=== PATIENT | female | born 1985 | race Caucasian/White ===

== ENCOUNTER 2020-09-26 12:53 | Emergency (ER) | payer OTHER, SELFPAY ==
[2020-09-26 13:07] VITALS: BP 131/90; PULSE 129; RESP 18; TEMP 36.3; O2SAT 97; BMI 20.5
[2020-09-26] MEDS: ONDANSETRON 4 MG/2 ML INJ IV (13:26)
[2020-09-26] MEDS: SODIUM CHLORIDE 0.9% 1,000 ML 1000 ML IV (13:26)
[2020-09-26 13:36] LABS: Add Manual Diff / Slide Review NO; Basophils Absolute Auto 0 /uL (0-100); Eosinophils Absolute Auto 0 /uL (0-450); Eosinophils Percent Auto 0.9 % (2-4); Hemoglobin 14.3 g/dL (12.0-16.0); Lymphocytes Absolute Auto 800 /uL (1100-4500); Lymphocytes Percent Auto 24.6 % (25-40); Mean Corpuscular HGB Conc 34.9 % (30-36); Mean Corpuscular Volume 103.3 fL (80-100); Monocytes Absolute Auto 400 /uL (0-900); Monocytes Percent Auto 10.4 % (3-14); Neutrophils Absolute Auto 2200 /uL (1500-7000); Neutrophils Percent Auto 63.1 % (50-75); Platelet Count 72 X10^3/uL (150-400); Red Blood Cell Count 3.97 X10^6/uL (4.0-5.2); White Blood Cell Count 3.5 X10^3/uL (4.5-11.0)
--- NOTE | 2020-09-26 13:46 | ED_ITS ---
HPI - Alcohol <GONZALO Tariq-BC - Last Filed: 09/26/20 17:44> General Chief Complaint: Toxicology Problem Stated Complaint: withdrawls from alcohol Time Seen by Provider: 09/26/20 12:58 Source: patient Mode of arrival: Ambulatory Limitations: no limitations History of Present Illness HPI narrative: The patient is a 34-year-old female current smoker with history of alcoholism who presents with a chief complaint of wanting help detoxing from alcohol. She drinks approximately 1/5 of whiskey per day. She has been trying to decrease her alcohol intake over the past few days, then noted that she was starting to have some symptoms of withdrawal. 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 She states she has had about 7 shots of whiskey over the past 24 hours. She has been inpatient in the hospital for detox, has not been through an outpatient program. She states she has been on medication prior to help detox, does not know which she has taken. She denies any other substances, does note that she smokes marijuana from time to time. She notes that her largest prior to of sobriety was approximately 8 months. She has been drinking consistently since 2013. She has not had her coronavirus vaccinations. Related Data Allergies Allergy/AdvReac Type Severity Reaction Status Date / Time No Known Drug Allergies Allergy Verified 09/26/20 13:10 Review of Systems <GONZALO Tariq- - Last Filed: 09/26/20 17:44> Review of Systems Narrative: GENERAL: Denies chills, fatigue, malaise, fever, sweats. HEENT: Denies sinus pain, ear pain, sore throat, difficulty swallowing, dizziness. RESPIRATORY: Denies dyspnea, cough, wheezing, hemoptysis, sputum. CARDIOVASCULAR: Denies chest pain, palpitations, orthopnea, edema, GASTROINTESTINAL: Denies nausea, vomiting, abdominal pain, diarrhea, constipation, melena. : Denies dysuria, frequency, incontinence, hematuria, urinary retention. MUSCULOSKELETAL: denies weakness, joint pain, or bony pain SKIN: Denies rash, skin lesions, or other NEUROLOGIC: Denies weakness, headache, numbness, change in speech, confusion, seizures, incoordination. PSYCHIATRIC: See HPI 12 point review of systems is negative except for those stated above Patient History <Carmen Rose NA - Last Filed: 09/26/20 17:44> Social History Smoking Status: Current every day smoker Smoking Status: Current every day smoker alcohol intake frequency: 3 or more drinks per day Substance Use Type: marijuana Exam <Carmen Rose NA - Last Filed: 09/26/20 17:44> Narrative Exam Narrative: GENERAL: This is a well-nourished, well-developed patient, in no acute distress HEAD: Atraumatic. Normocephalic. No temporal or scalp tenderness. EYES: Pupils equal round and reactive. Extraocular motions intact. No scleral icterus. No injection or drainage. ENT: Nose without bleeding, purulent drainage or septal hematoma. Wearing a mask Airway patent. NECK: Trachea midline. No JVD or lymphadenopathy. Supple, nontender, no meningeal signs. CARDIOVASCULAR: Regular rate and rhythm without murmurs, gallops, or rubs. RESPIRATORY: Clear to auscultation. Breath sounds equal bilaterally. No wheezes, rales, or rhonchi. No cough. No increased respiratory effort. No accessory muscle use. GASTROINTESTINAL: Abdomen soft, non-tender, nondistended. No hepato- splenomegaly, or palpable masses. No guarding. BACK: Nontender without deformity or crepitance. No flank tenderness. NEURO: AOx3. No tremor noted SKIN: No rash or erythema. Initial Vital Signs Initial Vital Signs: Vital Signs Temperature 97.3 F L 09/26/20 13:07 Pulse Rate 129 H 09/26/20 13:07 Respiratory Rate 18 09/26/20 13:07 Blood Pressure 131/90 09/26/20 13:07 Pulse Oximetry 97 09/26/20 13:07 <Carlos Bolanos DO - Last Filed: 09/26/20 18:08> Initial Vital Signs Initial Vital Signs: Vital Signs Temperature 97.3 F L 09/26/20 13:07 Pulse Rate 129 H 09/26/20 13:07 Respiratory Rate 18 09/26/20 13:07 Blood Pressure 131/90 09/26/20 13:07 Pulse Oximetry 97 09/26/20 13:07 Course <Carmen RoseNA - Last Filed: 09/26/20 17:44> Orders Ordered: ED Orders 09/26/20 13:10 Consult to [employer] - Bulk Sealer Operator Stat 09/26/20 13:24 Acetaminophen Stat Complete Blood Count AUTO DIFF Stat Comprehensive Metabolic Panel Stat Ethanol (ETOH) Stat Free T4, Direct Thyroxine Stat Salicylate Stat Thyroid Stimulating Hormone Stat Troponin & CK Cardiac Panel Stat 09/26/20 13:43 Urine Culture Stat Urine Drug Screen, Rapid Stat Urine Microscopic Stat 09/26/20 14:47 US abdomen limited Stat Discontinued Medications Sodium Chloride (Normal Saline 0.9%) 1,000 mls @ 1,000 mls/hr IV BOLUS ONE Stop: 09/26/20 14:14 Last Infusion: 09/26/20 14:44 Dose: 0 mls/hr Documented by: Admin: 09/26/20 13:26 Dose: 1,000 mls/hr Documented by: BASILIA Ondansetron HCl (Ondansetron 4 Mg/2 Ml Inj) 4 mg IV NOW ONE Stop: 09/26/20 13:16 Last Admin: 09/26/20 13:26 Dose: 4 mg Documented by: BASILIA Phenobarbital (Phenobarbital 65 Mg/Ml Vial) 130 mg IV NOW ONE Stop: 09/26/20 14:19 Last Admin: 09/26/20 14:34 Dose: 130 mg Documented by: ILEANA Vital Signs Vital signs: Vital Signs - 8 hr 09/26/20 13:07 09/26/20 14:35 09/26/20 15:40 Temperature 97.3 F L Pulse Rate 129 H 90 81 Respiratory Rate 18 16 18 Blood Pressure 131/90 128/89 110/70 Pulse Oximetry 97 100 97 09/26/20 16:00 09/26/20 16:13 09/26/20 16:30 Temperature Pulse Rate 84 86 87 Respiratory Rate 14 16 Blood Pressure 105/70 112/82 Pulse Oximetry 98 97 98 <Carlos Bolanos DO - Last Filed: 09/26/20 18:08> Orders Ordered: ED Orders 09/26/20 13:10 Consult to [facility] Bulk Sealer Operator Stat 09/26/20 13:24 Acetaminophen Stat Complete Blood Count AUTO DIFF Stat Comprehensive Metabolic Panel Stat Ethanol (ETOH) Stat Free T4, Direct Thyroxine Stat Salicylate Stat Thyroid Stimulating Hormone Stat Troponin & CK Cardiac Panel Stat 09/26/20 13:43 Urine Culture Stat Urine Drug Screen, Rapid Stat Urine Microscopic Stat 09/26/20 14:47 US abdomen limited Stat Discontinued Medications Sodium Chloride (Normal Saline 0.9%) 1,000 mls @ 1,000 mls/hr IV BOLUS ONE Stop: 09/26/20 14:14 Last Infusion: 09/26/20 14:44 Dose: 0 mls/hr Documented by: Admin: 09/26/20 13:26 Dose: 1,000 mls/hr Documented by: BASILIA Ondansetron HCl (Ondansetron 4 Mg/2 Ml Inj) 4 mg IV NOW ONE Stop: 09/26/20 13:16 Last Admin: 09/26/20 13:26 Dose: 4 mg Documented by: BASILIA Phenobarbital (Phenobarbital 65 Mg/Ml Vial) 130 mg IV NOW ONE Stop: 09/26/20 14:19 Last Admin: 09/26/20 14:34 Dose: 130 mg Documented by: ILEANA Vital Signs Vital signs: Vital Signs - 8 hr 09/26/20 13:07 09/26/20 14:35 09/26/20 15:40 Temperature 97.3 F L Pulse Rate 129 H 90 81 Respiratory Rate 18 16 18 Blood Pressure 131/90 128/89 110/70 Pulse Oximetry 97 100 97 09/26/20 16:00 09/26/20 16:13 09/26/20 16:30 Temperature Pulse Rate 84 86 87 Respiratory Rate 14 16 Blood Pressure 105/70 112/82 Pulse Oximetry 98 97 98 MDM - Alcohol <KRANTHI TariqP-BC - Last Filed: 09/26/20 17:44> Lab Data Attestation: I reviewed the patient's lab results. Result diagrams: 09/26/20 13:24 09/26/20 13:24 Labs: Lab Results 09/26/20 09/26/20 09/26/20 Range/Units 13:24 13:24 13:24 WBC 3.5 L (4.5-11.0) X10^3/uL RBC 3.97 L (4.0-5.2) X10^6/uL Hgb 14.3 (12.0-16.0) g/dL Hct 41.0 (36-46) % MCV 103.3 H (80-100) fL MCH 36.0 H (26-34) PG MCHC 34.9 (30-36) % RDW 13.0 (11.6-14.8) % Plt Count 72 L (150-400) X10^3/uL Neut % (Auto) 63.1 (50-75) % Lymph % (Auto) 24.6 L (25-40) % [place] % (Auto) 10.4 (3-14) % Eos % (Auto) 0.9 L (2-4) % Baso % (Auto) 1.0 (0-2) % Neut # (Auto) 2200 (4058-0663) /uL Lymph # (Auto) 800 L (8516-6629) /uL [place] # (Auto) 400 (0-900) /uL Eos # (Auto) 0 (0-450) /uL Baso # (Auto) 0 (0-100) /uL Sodium 139 (137-145) mmol/L Potassium 3.4 (3.4-5.1) mmol/L Chloride 96 L (98-107) mmol/L Carbon Dioxide 27 (22-32) mmol/L BUN 11 (7-17) mg/dL Creatinine 0.57 (0.52-1.04) mg/dL Estimated GFR > 60.0 (>60) mL/min BUN/Creatinine Ratio 19.3 (6-22) Glucose 97 (70-100) mg/dL Calcium 10.5 H (8.4-10.2) mg/dL Total Bilirubin 4.8 H (0.2-1.3) mg/dL AST 600 H (14-36) IU/L ALT 347 H (<35) IU/L Alkaline Phosphatase 66 (38-126) U/L Total Creatine Kinase (30-135) U/L CK-MB (CK-2) CK-MB (CK-2) Rel Index Troponin I (0.01-0.034) ng/mL Total Protein 9.1 H (6.3-8.2) g/dL Albumin 5.2 H (3.5-5.0) g/dL Globulin 3.9 (1.7-4.1) g/dL Albumin/Globulin Ratio 1.3 (1.0-2.8) TSH 1.20 (0.47-4.68) uIU/mL Free T4 0.98 (0.78-2.19) ng/dL Urine RBC (0-5/HPF) Urine WBC (0-5/HPF) Ur Squamous Epith Cells (0-5/HPF) Amorphous Sediment Urine Bacteria (None) Urine Mucus (Negative) Ur Culture Indicated? Salicylates < 1.0 (<20) mg/dL U Opiates 300ng/mL cut (Negative) Ur Oxycodone Screen (Negative) Urine Methadone Screen (Negative) Acetaminophen < 10 L (10-30) ug/mL Ur Barbiturates Screen (Negative) U Tricyclic Antidepress (Negative) Ur Phencyclidine Scrn (Negative) Ur Amphetamines Screen (Negative) U Methamphetamines Scrn (Negative) Ur MDMA Scrn (Ecstasy) (Negative) U Benzodiazepines Scrn (Negative) Urine Cocaine Screen (Negative) U Marijuana (THC) Screen (Negative) Ethyl Alcohol 84 H ( - 10) mg/dL 09/26/20 09/26/20 09/26/20 Range/Units 13:24 13:43 13:43 WBC (4.5-11.0) X10^3/uL RBC (4.0-5.2) X10^6/uL Hgb (12.0-16.0) g/dL Hct (36-46) % MCV (80-100) fL MCH (26-34) PG MCHC (30-36) % RDW (11.6-14.8) % Plt Count (150-400) X10^3/uL Neut % (Auto) (50-75) % Lymph % (Auto) (25-40) % [place] % (Auto) (3-14) % Eos % (Auto) (2-4) % Baso % (Auto) (0-2) % Neut # (Auto) (7657-2975) /uL Lymph # (Auto) (9215-3165) /uL [place] # (Auto) (0-900) /uL Eos # (Auto) (0-450) /uL Baso # (Auto) (0-100) /uL Sodium (137-145) mmol/L Potassium (3.4-5.1) mmol/L Chloride (98-107) mmol/L Carbon Dioxide (22-32) mmol/L BUN (7-17) mg/dL Creatinine (0.52-1.04) mg/dL Estimated GFR (>60) mL/min BUN/Creatinine Ratio (6-22) Glucose (70-100) mg/dL Calcium (8.4-10.2) mg/dL Total Bilirubin (0.2-1.3) mg/dL AST (14-36) IU/L ALT (<35) IU/L Alkaline Phosphatase (38-126) U/L Total Creatine Kinase 92 (30-135) U/L CK-MB (CK-2) TNP CK-MB (CK-2) Rel Index TNP Troponin I < 0.012 (0.01-0.034) ng/mL Total Protein (6.3-8.2) g/dL Albumin (3.5-5.0) g/dL Globulin (1.7-4.1) g/dL Albumin/Globulin Ratio (1.0-2.8) TSH (0.47-4.68) uIU/mL Free T4 (0.78-2.19) ng/dL Urine RBC 0-1/hpf (0-5/HPF) Urine WBC 1-5/hpf (0-5/HPF) Ur Squamous Epith Cells 5-10 /hpf H (0-5/HPF) Amorphous Sediment 1+ Urine Bacteria Few (2-10) H (None) Urine Mucus 1+ H (Negative) Ur Culture Indicated? Specimen cultured Salicylates (<20) mg/dL U Opiates 300ng/mL cut Negative (Negative) Ur Oxycodone Screen Negative (Negative) Urine Methadone Screen Negative (Negative) Acetaminophen (10-30) ug/mL Ur Barbiturates Screen Negative (Negative) U Tricyclic Antidepress Negative (Negative) Ur Phencyclidine Scrn Negative (Negative) Ur Amphetamines Screen Negative (Negative) U Methamphetamines Scrn Negative (Negative) Ur MDMA Scrn (Ecstasy) Negative (Negative) U Benzodiazepines Scrn Negative (Negative) Urine Cocaine Screen Negative (Negative) U Marijuana (THC) Screen Positive H (Negative) Ethyl Alcohol ( - 10) mg/dL Point of Care Testing Test Results Negative Urine Dip Bedside Urine Glucose Negative Bedside Urine Bilirubin - Negative Bedside Urine Ketone +/- 5 Urine Specific [place] 1.010 Bedside Urine Occult Blood +/- Bedside Urine pH 6.0 Bedside Urine Protein +/- 15 Bedside Urine Urobilinogen 1+ 2mg Bedside Urine Nitrite - Negative Bedside Urine Leukocytes + 70 Esterase Imaging Data US - abdomen: Radiologist's Impressoin: [address] [facility] [place], [place] [address]Evprromgvs ReportSigned Patient: Marshall Franz#: [id number]: 1985Acct:[id number]/Sex: 34 / FDate of Service: 09/26/20Loc: EDAccession Number: [id number] Procedure: US abdomen limited Ordering Provider: Carmen Rose PROCEDURE: US ABDOMEN LIMITED INDICATIONS: ELEVATED LIVER ENZYMES AND BILIRUBIN. ALCOHOL USE. TECHNIQUE: Real-time scanning was performed of the abdominal and retroperitoneal organs, with image documentation. COMPARISON: None. FINDINGS: Liver: Hepatic parenchyma shows diffuse increased echogenicity consistent with fatty infiltration. Liver is enlarged at 19.6 cm. No focal mass lesion. Gallbladder: Sonolucent without shadowing calculi or wall thickening. Biliary ducts: Intrahepatic bile ducts are non-dilated. Extrahepatic bile duct caliber measures 6.7 mm. Normal is 6-7 mm or less in diameter, or 10 mm or less post-cholecystectomy. IMPRESSION: Hepatic fatty infiltration. Otherwise unremarkable right upper quadrant ultrasound Approved by: Carlos Sanches M.D. on 09/26/2020 at 14:34 MDM Narrative Medical decision making narrative: The patient is a 34-year-old female who presents requesting help detox from alcohol. Her CIWA score is 7. 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 She felt much improved after that as well as IV f luids. Resources were discussed with her by Mattie WELDON, but the patient adamantly declines inpatient treatment at this point time. She is noted to have elevated LFTs and bilirubin, especially compared to her previous labs that [place]. Discussed this with Dr. Bolanos, ultrasound was taken and reveals hepatic fatty infiltration. The patient again declines inpatient detox and states that she wants to be discharged. I discussed at length with the patient that she needs to stop drinking, especially given changes in her labs. I discussed at length that phenobarbital infusion showed give her oral days of symptom relief, discussed at length that she needs to come back to the emergency department for any acute concerns, follow-up with primary care provider. Patient has no questions or concerns upon discharge states understanding return precautions as well as follow-up care. She has been hemodynamically stable throughout her stay in the ER. <Carlos Bolanos, DO - Last Filed: 09/26/20 18:08> Lab Data Labs: Lab Results 09/26/20 09/26/20 09/26/20 Range/Units 13:24 13:24 13:24 WBC 3.5 L (4.5-11.0) X10^3/uL RBC 3.97 L (4.0-5.2) X10^6/uL Hgb 14.3 (12.0-16.0) g/dL Hct 41.0 (36-46) % MCV 103.3 H (80-100) fL MCH 36.0 H (26-34) PG MCHC 34.9 (30-36) % RDW 13.0 (11.6-14.8) % Plt Count 72 L (150-400) X10^3/uL Neut % (Auto) 63.1 (50-75) % Lymph % (Auto) 24.6 L (25-40) % [place] % (Auto) 10.4 (3-14) % Eos % (Auto) 0.9 L (2-4) % Baso % (Auto) 1.0 (0-2) % Neut # (Auto) 2200 (5852-4324) /uL Lymph # (Auto) 800 L (1614-3951) /uL [place] # (Auto) 400 (0-900) /uL Eos # (Auto) 0 (0-450) /uL Baso # (Auto) 0 (0-100) /uL Sodium 139 (137-145) mmol/L Potassium 3.4 (3.4-5.1) mmol/L Chloride 96 L (98-107) mmol/L Carbon Dioxide 27 (22-32) mmol/L BUN 11 (7-17) mg/dL Creatinine 0.57 (0.52-1.04) mg/dL Estimated GFR > 60.0 (>60) mL/min BUN/Creatinine Ratio 19.3 (6-22) Glucose 97 (70-100) mg/dL Calcium 10.5 H (8.4-10.2) mg/dL Total Bilirubin 4.8 H (0.2-1.3) mg/dL AST 600 H (14-36) IU/L ALT 347 H (<35) IU/L Alkaline Phosphatase 66 (38-126) U/L Total Creatine Kinase (30-135) U/L CK-MB (CK-2) CK-MB (CK-2) Rel Index Troponin I (0.01-0.034) ng/mL Total Protein 9.1 H (6.3-8.2) g/dL Albumin 5.2 H (3.5-5.0) g/dL Globulin 3.9 (1.7-4.1) g/dL Albumin/Globulin Ratio 1.3 (1.0-2.8) TSH 1.20 (0.47-4.68) uIU/mL Free T4 0.98 (0.78-2.19) ng/dL Urine RBC (0-5/HPF) Urine WBC (0-5/HPF) Ur Squamous Epith Cells (0-5/HPF) Amorphous Sediment Urine Bacteria (None) Urine Mucus (Negative) Ur Culture Indicated? Salicylates < 1.0 (<20) mg/dL U Opiates 300ng/mL cut (Negative) Ur Oxycodone Screen (Negative) Urine Methadone Screen (Negative) Acetaminophen < 10 L (10-30) ug/mL Ur Barbiturates Screen (Negative) U Tricyclic Antidepress (Negative) Ur Phencyclidine Scrn (Negative) Ur Amphetamines Screen (Negative) U Methamphetamines Scrn (Negative) Ur MDMA Scrn (Ecstasy) (Negative) U Benzodiazepines Scrn (Negative) Urine Cocaine Screen (Negative) U Marijuana (THC) Screen (Negative) Ethyl Alcohol 84 H ( - 10) mg/dL 09/26/20 09/26/20 09/26/20 Range/Units 13:24 13:43 13:43 WBC (4.5-11.0) X10^3/uL RBC (4.0-5.2) X10^6/uL Hgb (12.0-16.0) g/dL Hct (36-46) % MCV (80-100) fL MCH (26-34) PG MCHC (30-36) % RDW (11.6-14.8) % Plt Count (150-400) X10^3/uL Neut % (Auto) (50-75) % Lymph % (Auto) (25-40) % [place] % (Auto) (3-14) % Eos % (Auto) (2-4) % Baso % (Auto) (0-2) % Neut # (Auto) (7142-3333) /uL Lymph # (Auto) (9261-3385) /uL [place] # (Auto) (0-900) /uL Eos # (Auto) (0-450) /uL Baso # (Auto) (0-100) /uL Sodium (137-145) mmol/L Potassium (3.4-5.1) mmol/L Chloride (98-107) mmol/L Carbon Dioxide (22-32) mmol/L BUN (7-17) mg/dL Creatinine (0.52-1.04) mg/dL Estimated GFR (>60) mL/min BUN/Creatinine Ratio (6-22) Glucose (70-100) mg/dL Calcium (8.4-10.2) mg/dL Total Bilirubin (0.2-1.3) mg/dL AST (14-36) IU/L ALT (<35) IU/L Alkaline Phosphatase (38-126) U/L Total Creatine Kinase 92 (30-135) U/L CK-MB (CK-2) TNP CK-MB (CK-2) Rel Index TNP Troponin I < 0.012 (0.01-0.034) ng/mL Total Protein (6.3-8.2) g/dL Albumin (3.5-5.0) g/dL Globulin (1.7-4.1) g/dL Albumin/Globulin Ratio (1.0-2.8) TSH (0.47-4.68) uIU/mL Free T4 (0.78-2.19) ng/dL Urine RBC 0-1/hpf (0-5/HPF) Urine WBC 1-5/hpf (0-5/HPF) Ur Squamous Epith Cells 5-10 /hpf H (0-5/HPF) Amorphous Sediment 1+ Urine Bacteria Few (2-10) H (None) Urine Mucus 1+ H (Negative) Ur Culture Indicated? Specimen cultured Salicylates (<20) mg/dL U Opiates 300ng/mL cut Negative (Negative) Ur Oxycodone Screen Negative (Negative) Urine Methadone Screen Negative (Negative) Acetaminophen (10-30) ug/mL Ur Barbiturates Screen Negative (Negative) U Tricyclic Antidepress Negative (Negative) Ur Phencyclidine Scrn Negative (Negative) Ur Amphetamines Screen Negative (Negative) U Methamphetamines Scrn Negative (Negative) Ur MDMA Scrn (Ecstasy) Negative (Negative) U Benzodiazepines Scrn Negative (Negative) Urine Cocaine Screen Negative (Negative) U Marijuana (THC) Screen Positive H (Negative) Ethyl Alcohol ( - 10) mg/dL Point of Care Testing Test Results Negative Urine Dip Bedside Urine Glucose Negative Bedside Urine Bilirubin - Negative Bedside Urine Ketone +/- 5 Urine Specific [place] 1.010 Bedside Urine Occult Blood +/- Bedside Urine pH 6.0 Bedside Urine Protein +/- 15 Bedside Urine Urobilinogen 1+ 2mg Bedside Urine Nitrite - Negative Bedside Urine Leukocytes + 70 Esterase Discharge Plan Departure Patient Disposition: Home Clinical Impression: Alcohol withdrawal syndrome Qualifiers: Complication of substance-induced condition: uncomplicated Qualified Code(s): F10.230 - Alcohol dependence with withdrawal, uncomplicated Instructions: Alcohol and Stress: There are Safer Ways to [place], DI for Alcohol Use Disorder, Drug and Alcohol Withdrawal, Liver Function Tests Activity Restrictions/Additional Instructions: Thank you for trusting us with your care today. As discussed, please follow-up with primary care provider in the next few days. The phenobarbital that we gave you should help prevent symptoms of detox for several days. Please come back to the emergency department for any acute concerns. As discussed, I am concerned about your lab work and would like you to follow-up with primary care provider regarding. We are noticing changes with your lab work related to your or use. This is very concerning and I encourage you to continue on your journey to sobriety. Referrals: Deepa Skinner FNP- [Primary Care Provider] - <Carlos Bolanos DO - Last Filed: 09/26/20 18:08> [facility] Attending [facility]ature Attestation: Dr Bolanos Co-Sign Statement: I was avail able for consultation during this patient's emergency department visit. This chart is signed by myself for administrative purposes only. I did not have direct contact with this patient during this visit. They were seen independently by the APC.
[2020-09-26 13:58] LABS: Acetaminophen < 10 ug/mL (10-30); Alanine Aminotransferase 347 IU/L (<35); Albumin 5.2 g/dL (3.5-5.0); Albumin Globulin Ratio 1.3 (1.0-2.8); Alkaline Phosphatase 66 U/L (38-126); Aspartate Aminotransferase 600 IU/L (14-36); BUN Creatinine Ratio 19.3 (6-22); Bilirubin Total 4.8 mg/dL (0.2-1.3); Blood Urea Nitrogen 11 mg/dL (7-17); Calcium 10.5 mg/dL (8.4-10.2); Carbon Dioxide 27 mmol/L (22-32); Chloride 96 mmol/L (98-107); Estimated Glomerular Filt Rate > 60.0 mL/min (>60); Ethanol (ETOH) 84 mg/dL; Globulin 3.9 g/dL (1.7-4.1); Glucose 97 mg/dL (70-100); HEMOLYSIS 16 (0-50); Potassium 3.4 mmol/L (3.4-5.1); Salicylate < 1.0 mg/dL (<20); Sodium 139 mmol/L (137-145); Total Protein 9.1 g/dL (6.3-8.2)
[2020-09-26 14:00] LABS: Creatine Kinase 92 U/L (30-135)
[2020-09-26 14:11] LABS: Troponin I < 0.012 ng/mL (0.01-0.034)
[2020-09-26 14:14] LABS: Free T4, Direct Thyroxine 0.98 ng/dL (0.78-2.19)
--- NOTE | 2020-09-26 14:14 | PC.NURSE ---
Social work at bedside
[2020-09-26 14:17] LABS: UR Morphine/Opiate cutoff 300 Negative (Negative); Ur Creatinine Normal (Normal); Ur Specific Gravity Normal (Normal); Urine Amphetamines Negative (Negative); Urine Barbiturates Negative (Negative); Urine Benzodiazepines Negative (Negative); Urine Cocaine Negative (Negative); Urine MDMA Negative (Negative); Urine Methadone Negative (Negative); Urine Methamphetamines Negative (Negative); Urine Oxycodone Negative (Negative); Urine Phencyclidine Negative (Negative); Urine Tetrahydrocannabinol Positive (Negative); Urine Tricyclic Antidepressant Negative (Negative); Urine pH Normal (Normal)
[2020-09-26 14:22] LABS: Amorphous Sediment Urine 1+; Bacteria Urine Few (2-10); Culture Indicated Urine Specimen Cultured; Mucus Urine 1+ (Negative); RBC Urine 0-1/HPF (0-5/HPF); Squamous Epithelial Cell Urine 5-10 /HPF (0-5/HPF); WBC Urine 1-5/HPF (0-5/HPF)
[2020-09-26] MEDS: PHENobarbital 65 MG/ML VIAL 130 MG IV (14:34)
[2020-09-26 14:35] VITALS: BP 128/89; PULSE 90; RESP 16; O2SAT 100
--- NOTE | 2020-09-26 14:47 | DI.US.S_ITS ---
PROCEDURE: US ABDOMEN LIMITED INDICATIONS: ELEVATED LIVER ENZYMES AND BILIRUBIN. ALCOHOL USE. TECHNIQUE: Real-time scanning was performed of the abdominal and retroperitoneal organs, with image documentation. COMPARISON: None. FINDINGS: Liver: Hepatic parenchyma shows diffuse increased echogenicity consistent with fatty infiltration. Liver is enlarged at 19.6 cm. No focal mass lesion. Gallbladder: Sonolucent without shadowing calculi or wall thickening. Biliary ducts: Intrahepatic bile ducts are non-dilated. Extrahepatic bile duct caliber measures 6.7 mm. Normal is 6-7 mm or less in diameter, or 10 mm or less post-cholecystectomy. IMPRESSION: Hepatic fatty infiltration. Otherwise unremarkable right upper quadrant ultrasound Approved by: Carlos Sacnhes M.D. on 09/26/2020 at 14:34
--- NOTE | 2020-09-26 14:59 | CM.SWNOTE ---
EMOTIONAL SUPPORT TEACHER Assessment EMOTIONAL SUPPORT TEACHER - Graphics Edit Technician Assessment EMOTIONAL SUPPORT TEACHER - Graphics Edit Technician Assessment Start: 09/26/20 14:28 Freq: Status: Active Protocol: Document 09/26/20 14:29 LN (Rec: 09/26/20 14:57 LN [id number]) EMOTIONAL SUPPORT TEACHER/Graphics Edit Technician Assessment Time Spent with Patient Start date 09/26/20 Visit Start Time 14:10 End date 09/26/20 Visit End Time 14:30 Total time Care Management spent on 20 patient visit-in minutes Substance Abuse Screening Include Onset, Duration, Intensity Presenting Problem Patient presents to this ED with concern for ETOH withdrawal symptoms Precipitating Event(s) Patient endorses she went to the [facility] a few days ago and her lab results indicated that if she were to continue drinking she would in 5 years Patient Strengths Patient shows insight and motivation to change Current Behavioral Health Provider(s) No providers Include Facility, Provider, Ph. # Family Hx of Behavioral Abuse None reported Rehab Facilities? ((Date(s), Location(s) No hx ) History of Withdrawal? Seizures? Patient has hx of withdrawal symptoms such as sweats, nausea, vomiting, loss of appetite, Diarrhea and tactile hallucinations. Patient endorses hx of seizure withdrawals on two occasions. Longest Period of Sobriety 8 months, a few years ago Psychosocial information & Support Patient is 34 y/o female who Systems resides in [place]. Patient presents with emergency contact/friend in room at ED and endorses several safe and sober supports. School/Work Unemployed Legal Concerns Legal Matters - Outstanding Issues None reported Mental Status Orientation (Person/Place/Time) A/Ox4 Stated Mood ok Affect (Congruent with Mood?) Euthymic, full range, congruent with mood Thought Content - Specify/Describe Patient endorses hx of Obsessions, Delusions, Hallucinations hallucinations as ETOH withdrawal symptom Thought Processes (Xxyntfd-Wkobwzpu-Siil coherent Utvmxygi-Akvvqjul-Qauhmqpwsq- Yotatgtffdkizo-Lecdesm-Rudbtrgwkqgx- Thought Blocking) Speech (Mslonn-Fxvi-Nxeumgz-Rapid-Soft- normal Loud-Pressured) Motor (Lpadkh-Ckaekjtqj-Vsva-Other) normal Insight (Fwta-Jeuq-Vsfw/Limited) fair/good Judgement (Jnwx-Bdtt-Yozm/Limited) fair/good Impulse Control (Adequate-Impaired) adequate Memory (Aypcugazs-Usojmb-Dkfoxm, intact Impaired-Intact) Concentration (Intact-Impaired) intact Attention (Intact-Impaired) intact Behavior (Appropriate-Inappropriate) appropriate Risk Assessment Suicidal Ideation (Plan) No Homicidal Ideation (Plan) No Intervention Intervention EMOTIONAL SUPPORT TEACHER enters room and meets with patient and friend. Patient endorses her concern for withdrawal symptoms due to the severity of her symptoms in the past. Patient endorses she recently had lab work done and was informed that if she does not address her alcohol use she will within 5 years. Patient endorses her motivation to not touch the bottle. Patient endorses several supports in her life. Patient endorses that her ETOH use started in social situations and progressed to daily use. Patient endorses she drinks a 1/5 of whiskey a day but also drinks wine, cocktails and beer. Patient endorses that she drank 7 shots in the last 24 hours with her last drink at 10 am this morning. EMOTIONAL SUPPORT TEACHER discusses detox stabilization centers and IOP. Patient endorses she has not engaged in any of those services in the past and has sought sobriety cold turkey. Patient denies interest in going to detox but endorses some interest in utilizing IOP, patient endorses she has been to AA before but was not fond of it due to lack of privacy. It is the opinion of this EMOTIONAL SUPPORT TEACHER that patient is safe to d/c to the community when medically clear. EMOTIONAL SUPPORT TEACHER to provide patient with tx resources for inpatient, detox and AA. EMOTIONAL SUPPORT TEACHER reviews the above with ED provider BRODERICK Tariq and RNs Zuleyma and Aimee who indicate agreement and understanding. Plan RA Plan Patient to d/c to home when medically clear, EMOTIONAL SUPPORT TEACHER to provide patient with tx resources SHIRAZ Burton
[2020-09-26 15:40] VITALS: BP 110/70; PULSE 81; RESP 18; O2SAT 97
[2020-09-26 16:00] VITALS: BP 105/70; PULSE 84; RESP 14; O2SAT 98
[2020-09-26 16:13] VITALS: PULSE 86; O2SAT 97
[2020-09-26 16:30] VITALS: BP 112/82; PULSE 87; RESP 16; O2SAT 98
== END 2020-09-26 16:41 | disposition home or self-care (01) ==
PROVIDERS: Emergency Medicine; Emergency Provider Nurse Practitioner Family; PCP Nurse Practitioner Family
DX: F10.230 Alcohol dependence with withdrawal, uncomplicated (principal)
CPT/HCPCS: 36415; 76705; 80053; 80305; 80320; 80329; 81003; 81015; 81025; 82550; 84439; 84443; 84484; 85025; 87086; 96361; 96374; 96375; 99284; G0480; J2405; J2560

== ENCOUNTER 2023-06-30 10:18 | Emergency (ER) | payer OTHER, SELFPAY ==
[2023-06-30] VITALS (8 sets, daily range): BP systolic 113–148; BP diastolic 72–90; PULSE 63–84; RESP 18–32; TEMP 36.3–36.8; O2SAT 97–100; BMI 20.5
--- NOTE | 2023-06-30 10:58 | ED_ITS ---
HPI - General Adult General Chief complaint: Toxicology Problem Stated complaint: just had seizure Time Seen by Provider: 06/30/23 10:46 Source: patient Mode of arrival: Family Vehicle History of Present Illness HPI narrative: Patient is a 37-year-old female who is withdrawing from alcohol. She states her last drink was approximately 24 hours ago. She states she was at work today when she started to have shaking. She did not lose consciousness. She thought that she was shaking more on the left side than the right which is why she thought that maybe she was having a seizure. She stated that she did try to cut down on her alcohol recently. Her current episode of drinking has been for several months. There was a period of time when she was sober. She was going to . She denies chest pain, shortness of breath. She was currently not nauseous although she did throw up this morning. No headache. Related Data Allergies Allergy/AdvReac Type Severity Reaction Status Date / Time No Known Drug Allergies Allergy Verified 06/30/23 10:35 Review of Systems Review of Systems Narrative: See HPI Patient History Social History Smoking Status: Current every day smoker Smoking Status: Current every day smoker alcohol intake frequency: 3 or more drinks per day Substance Use Type: marijuana Exam Initial Vital Signs Initial Vital Signs: Vital Signs Temperature 97.4 F L 06/30/23 10:27 Pulse Rate 82 06/30/23 10:27 Respiratory Rate 18 06/30/23 10:27 Blood Pressure 140/87 06/30/23 10:27 Pulse Oximetry 99 06/30/23 10:27 Oxygen Delivery Method Room Air 06/30/23 10:27 Const General: cooperative, comfortable and No ill appearing [facility] Head: normal to inspection Resp Effort & Inspection: normal respiratory effort Auscultation: clear to auscultation bilaterally Cardio Rate: regular rate Rhythm: regular rhythm GI Inspection: normal to inspection Palpation: soft Neuro General: patient alert, patient awake, patient oriented x3 and moves all extremities Other: Patient does have fine tremors Extrem Other: No gross deformities Course Orders Ordered: ED Orders 06/30/23 10:44 Consult to Consulting Practice Director Stat 06/30/23 10:58 Consult to AUTOMOTIVE PARTS COUNTER ASSOCIATE - Consulting Practice Director Stat 06/30/23 11:43 Urine Culture Stat Urine Drug Screen, Rapid Stat Urine Microscopic Stat 06/30/23 11:56 Complete Blood Count AUTO DIFF Stat Comprehensive Metabolic Panel Stat Ethanol (ETOH) Stat Thyroid Stimulating Hormone Stat Discontinued Medications Sodium Chloride (Normal Saline 0.9%) 1,000 mls @ 1,000 mls/hr IV BOLUS ONE Stop: 06/30/23 11:44 Last Infusion: 06/30/23 12:59 Dose: Infused Documented By: Admin: 06/30/23 12:05 Dose: 1,000 mls/hr Documented By: AUSTEN Thiamine HCl 100 mg/ Sodium (Chloride) 101 mls @ 404 mls/hr IV NOW ONE Stop: 06/30/23 10:58 Last Infusion: 06/30/23 12:50 Dose: Infused Documented By: Infusion: 06/30/23 12:30 Dose: 404 mls/hr Documented By: Admin: 06/30/23 12:10 Dose: 404 mls/hr Documented By: AUSTEN Phenobarbital (Phenobarbital 65 Mg/Ml Vial) 260 mg IV NOW ONE Stop: 06/30/23 10:48 Last Admin: 06/30/23 12:13 Dose: 260 mg Documented By: AUSTEN Phenobarbital (Phenobarbital 65 Mg/Ml Vial) 130 mg IV NOW ONE Stop: 06/30/23 13:17 Last Admin: 06/30/23 13:26 Dose: 130 mg Documented By: FRANCISCO Vital Signs Vital signs: Vital Signs - 8 hr 06/30/23 10:27 06/30/23 11:40 06/30/23 11:41 Temperature 97.4 F L Pulse Rate 82 71 71 Respiratory Rate 18 28 H 21 Blood Pressure 140/87 Pulse Oximetry 99 98 97 Oxygen Delivery Method Room Air 06/30/23 11:41 06/30/23 12:00 06/30/23 12:00 Temperature Pulse Rate 65 Respiratory Rate 27 H Blood Pressure 135/72 120/77 Pulse Oximetry 98 Oxygen Delivery Method Room Air 06/30/23 12:30 06/30/23 13:00 06/30/23 13:00 Temperature Pulse Rate 81 63 Respiratory Rate 32 H 18 Blood Pressure 148/89 H Pulse Oximetry 99 100 Oxygen Delivery Method Room Air Room Air 06/30/23 13:30 06/30/23 13:30 Temperature Pulse Rate 84 Respiratory Rate 18 Blood Pressure 126/83 Pulse Oximetry 99 Oxygen Delivery Method Room Air Medical Decision Making Medical Records Medical records reviewed: Yes I reviewed the patient's medical records. Lab Data Lab results reviewed: Yes I reviewed the patient's lab results. 06/30/23 11:56 06/30/23 11:56 Labs: Lab Results 06/30/23 06/30/23 Range/Units 11:43 11:56 WBC 4.9 (4.5-11.0) X10^3/uL RBC 3.60 L (4.0-5.2) X10^6/uL Hgb 12.9 (12.0-16.0) g/dL Hct 37.2 (36-46) % MCV 103.3 H (80-100) fL MCH 35.8 H (26-34) PG MCHC 34.6 (30-36) % RDW 13.4 (11.6-14.8) % Plt Count 99 L (150-400) X10^3/uL Neut % (Auto) 82.9 H (50-75) % Lymph % (Auto) 9.6 L (25-40) % [place] % (Auto) 6.7 (3-14) % Eos % (Auto) 0.1 L (2-4) % Baso % (Auto) 0.7 (0-2) % Neut # (Auto) 4000 (8715-6595) /uL Lymph # (Auto) 500 L (8586-9500) /uL [place] # (Auto) 300 (0-900) /uL Eos # (Auto) 0 (0-450) /uL Baso # (Auto) 0 (0-100) /uL Sodium 139 (137-145) mmol/L Potassium 4.2 (3.4-5.1) mmol/L Chloride 102 (98-107) mmol/L Carbon Dioxide 25 (22-32) mmol/L BUN 11 (7-17) mg/dL Creatinine 0.40 L (0.52-1.04) mg/dL Estimated GFR > 60 (>60) mL/min BUN/Creatinine Ratio 27.5 H (6-22) Glucose 85 (70-100) mg/dL Calcium 9.5 (8.4-10.2) mg/dL Total Bilirubin 2.9 H (0.2-1.3) mg/dL AST 255 H (14-36) IU/L ALT 111 H (<35) IU/L Alkaline Phosphatase 48 (38-126) U/L Total Protein 9.2 H (6.3-8.2) g/dL Albumin 5.4 H (3.5-5.0) g/dL Globulin 3.8 (1.7-4.1) g/dL Albumin/Globulin Ratio 1.4 (1.0-2.8) TSH 1.05 (0.47-4.68) uIU/mL Urine RBC 1-5/hpf (0-5/HPF) Urine WBC 1-5/hpf (0-5/HPF) Ur Squamous Epith Cells 5-10 /hpf H (0-5/HPF) Urine Bacteria None seen (None) Ur Culture Indicated? Specimen cultured Vol Urine Centrifuged 10ml (spun) U Opiates 300ng/mL cut Negative (Negative) Ur Oxycodone Screen Negative (Negative) Urine Methadone Screen Negative (Negative) Ur Barbiturates Screen Negative (Negative) U Tricyclic Antidepress Negative (Negative) Ur Phencyclidine Scrn Negative (Negative) Ur Amphetamines Screen Negative (Negative) U Methamphetamines Scrn Negative (Negative) Ur MDMA Scrn (Ecstasy) Negative (Negative) U Benzodiazepines Scrn Negative (Negative) Urine Cocaine Screen Negative (Negative) U Marijuana (THC) Screen Positive H (Negative) Urine pH Normal (Normal) Urine Specific [place] Normal (Normal) Ethyl Alcohol < 10 ( - 10) mg/dL Ur Creatinine Normal (Normal) Point of Care Testing Test Results Negative Urine Dip Bedside Urine Glucose Negative Bedside Urine Bilirubin - Negative Bedside Urine Ketone ++ 40 Urine Specific [place] 1.030 Bedside Urine Occult Blood + Bedside Urine pH 6.0 Bedside Urine Protein +/- 15 Bedside Urine Urobilinogen - Negative Bedside Urine Nitrite - Negative Bedside Urine Leukocytes +/- 15 Esterase Point of care testing: Point of Care Testing Test Results Negative Urine Dip Bedside Urine Glucose Negative Bedside Urine Bilirubin - Negative Bedside Urine Ketone ++ 40 Urine Specific [place] 1.030 Bedside Urine Occult Blood + Bedside Urine pH 6.0 Bedside Urine Protein +/- 15 Bedside Urine Urobilinogen - Negative Bedside Urine Nitrite - Negative Bedside Urine Leukocytes +/- 15 Esterase MDM Narrative Medical decision making narrative: It does not sound like the patient had a seizure. He was more shaking because of alcohol withdrawal. After 2 doses of phenobarbital her CIWA score is 0. She has been seen by social work. She does not interested in detox. Patient was given resources. Will discharge patient home with return precautions Discharge Plan Departure Patient Disposition: Home Clinical Impression: Alcohol withdrawal syndrome Instructions: Alcohol Withdrawal Activity Restrictions/Additional Instructions: I do recommend that you return to the emergency department if you change your mind and would like assistance with helping find detox. You can also use the resources that you were given here by social work. Contact your primary doctor for a follow-up. Referrals: Deepa Skinner, GONZALO-BC [Primary Care Provider] - Stand Alone Forms: Patient Portal/API
[2023-06-30] MEDS: SODIUM CHLORIDE 0.9% 1,000 ML 1000 ML IV (12:05)
[2023-06-30 12:10] LABS: Add Manual Diff / Slide Review NO; Basophils Absolute Auto 0 /uL (0-100); Basophils Percent Auto 0.7 % (0-2); Eosinophils Absolute Auto 0 /uL (0-450); Eosinophils Percent Auto 0.1 % (2-4); Hematocrit 37.2 % (36-46); Hemoglobin 12.9 g/dL (12.0-16.0); Lymphocytes Absolute Auto 500 /uL (1100-4500); Lymphocytes Percent Auto 9.6 % (25-40); Mean Corpuscular HGB Conc 34.6 % (30-36); Mean Corpuscular Hemoglobin 35.8 PG (26-34); Mean Corpuscular Volume 103.3 fL (80-100); Monocytes Absolute Auto 300 /uL (0-900); Monocytes Percent Auto 6.7 % (3-14); Neutrophils Absolute Auto 4000 /uL (1500-7000); Neutrophils Percent Auto 82.9 % (50-75); Platelet Count 99 X10^3/uL (150-400); Red Cell Distribution Width 13.4 % (11.6-14.8); White Blood Cell Count 4.9 X10^3/uL (4.5-11.0)
[2023-06-30] MEDS: THIAMINE 100 MG in SODIUM CHLORIDE 0.9% 100 ML 404 MG IV (12:10)
[2023-06-30] MEDS: PHENobarbital 65 MG/ML VIAL 260 MG IV (12:13)
[2023-06-30 12:22] LABS: Alanine Aminotransferase 111 IU/L (<35); Albumin 5.4 g/dL (3.5-5.0); Albumin Globulin Ratio 1.4 (1.0-2.8); Alkaline Phosphatase 48 U/L (38-126); Aspartate Aminotransferase 255 IU/L (14-36); BUN Creatinine Ratio 27.5 (6-22); Bilirubin Total 2.9 mg/dL (0.2-1.3); Blood Urea Nitrogen 11 mg/dL (7-17); Calcium 9.5 mg/dL (8.4-10.2); Carbon Dioxide 25 mmol/L (22-32); Chloride 102 mmol/L (98-107); Estimated Glomerular Filt Rate > 60 mL/min (>60); Ethanol (ETOH) < 10 mg/dL; Globulin 3.8 g/dL (1.7-4.1); Glucose 85 mg/dL (70-100); Potassium 4.2 mmol/L (3.4-5.1); Sodium 139 mmol/L (137-145); Total Protein 9.2 g/dL (6.3-8.2)
[2023-06-30 12:23] LABS: HEMOLYSIS 191 (0-50)
[2023-06-30 13:04] LABS: UR Morphine/Opiate cutoff 300 Negative (Negative); Ur Creatinine Normal (Normal); Ur Specific Gravity Normal (Normal); Urine Amphetamines Negative (Negative); Urine Barbiturates Negative (Negative); Urine Benzodiazepines Negative (Negative); Urine Cocaine Negative (Negative); Urine MDMA Negative (Negative); Urine Methadone Negative (Negative); Urine Methamphetamines Negative (Negative); Urine Oxycodone Negative (Negative); Urine Phencyclidine Negative (Negative); Urine Tetrahydrocannabinol Positive (Negative); Urine Tricyclic Antidepressant Negative (Negative); Urine pH Normal (Normal)
[2023-06-30 13:09] LABS: Thyroid Stimulating Hormone 1.05 uIU/mL (0.47-4.68)
[2023-06-30 13:14] LABS: Urine Volume 10mL (spun)
[2023-06-30 13:16] LABS: Bacteria Urine None Seen; Culture Indicated Urine Specimen Cultured; RBC Urine 1-5/HPF (0-5/HPF); Squamous Epithelial Cell Urine 5-10 /HPF (0-5/HPF); WBC Urine 1-5/HPF (0-5/HPF)
[2023-06-30] MEDS: PHENobarbital 65 MG/ML VIAL 130 MG IV (13:26)
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
== END 2023-06-30 14:15 | disposition home or self-care (01) ==
PROVIDERS: Emergency Provider Emergency Medicine; PCP Nurse Practitioner Family
DX: F10.239 Alcohol dependence with withdrawal, unspecified (principal)
CPT/HCPCS: 36415; 80053; 80305; 80320; 81003; 81015; 81025; 84443; 85025; 87086; 96361; 96374; 96376; 99284; J2560

== ENCOUNTER 2023-12-25 18:52 | Emergency (ER) | payer OTHER, SELFPAY ==
[2023-12-25 19:06] VITALS: BP 125/76; PULSE 127; RESP 16; TEMP 37.4; O2SAT 96
--- NOTE | 2023-12-25 19:14 | EKG_ITS ---
[facility] [address] [place] [address] Test Date: 2023-12-25 Pat Name: Magdalena Franz Department: [facility] Room: Gender: Female Hvac Manager: ADRIANA : 1985 Requested By: Order Number: [id number] Reading MD: Rocky Willams MD Measurements Intervals [place] Rate: 122 P: 45 SC: 128 QRS: -3 QRSD: 82 T: 33 QT: 434 QTc: 618 Interpretive Statements Critical Test Result: Long QTc Sinus tachycardia Nonspecific T wave abnormality NO PRIOR TRACING Electronically Signed On 12-26-2023 7:37:47 PST by Rocky Willams MD
--- NOTE | 2023-12-25 19:15 | DI.RAD.S_ITS ---
PROCEDURE: XR CHEST 2V INDICATIONS: sob TECHNIQUE: 2 views of the chest were acquired. COMPARISON: None. FINDINGS: Surgical changes and devices: None. Lungs and pleura: Lungs are clear. No pleural effusions or pneumothorax. Mediastinum: Mediastinal contours are normal. Heart size is normal. Bones and chest wall: No suspicious bony abnormalities. Soft tissues appear unremarkable. IMPRESSION: No acute cardiopulmonary abnormalities or focal consolidation. Dictated by: Eros Steve M.D. on 12/25/2023 at 20:32 Approved by: Eros Steve M.D. on 12/25/2023 at 20:32
--- NOTE | 2023-12-25 19:38 | CM.SWNOTE ---
ED MILLED RUBBER TENDER Note: Pt is a 38yo female, presented to the ED requesting ETOH detox. Per triage, pt is currently houseless. ED MILLED RUBBER TENDER consulted to assist with detox referral process, unable to complete as ED MILLED RUBBER TENDER shift ending and pt still pending medical clearance. ED MILLED RUBBER TENDER called [facility], spoke with Maggie. It is reported that there are female beds available for ETOH detox. When medically cleared, a packet is requested for review to be sent to fax# [phone]. Patient will also need to complete phone screening at ph# [phone]. ED MILLED RUBBER TENDER called [facility] in [place]. It is reported that there are female beds available for ETOH detox. When medically cleared, a packet is requested for review to be sent to fax# [phone]. Patient will also need to complete phone screening at ph# [phone]. Plan: Pt still pending medical clearance for detox. ED Staff to follow for detox referral. VAUGHN Poon
[2023-12-25 19:50] LABS: Add Manual Diff / Slide Review NO; Basophils Absolute Auto 0 /uL (0-100); Basophils Percent Auto 0.5 % (0-2); Eosinophils Absolute Auto 0 /uL (0-450); Eosinophils Percent Auto 0.1 % (2-4); Hematocrit 39.4 % (36-46); Hemoglobin 13.5 g/dL (12.0-16.0); Lymphocytes Absolute Auto 1700 /uL (1100-4500); Lymphocytes Percent Auto 28.2 % (25-40); Mean Corpuscular HGB Conc 34.3 % (30-36); Mean Corpuscular Hemoglobin 32.9 PG (26-34); Mean Corpuscular Volume 95.9 fL (80-100); Monocytes Absolute Auto 300 /uL (0-900); Monocytes Percent Auto 5.7 % (3-14); Neutrophils Absolute Auto 3900 /uL (1500-7000); Neutrophils Percent Auto 65.5 % (50-75); Platelet Count 86 X10^3/uL (150-400); Red Blood Cell Count 4.11 X10^6/uL (4.0-5.2); Red Cell Distribution Width 15.1 % (11.6-14.8); White Blood Cell Count 5.9 X10^3/uL (4.5-11.0)
[2023-12-25 20:05] LABS: Alanine Aminotransferase 43 IU/L (<35); Albumin 4.5 g/dL (3.5-5.0); Albumin Globulin Ratio 1.4 (1.0-2.8); Alkaline Phosphatase 42 U/L (38-126); Aspartate Aminotransferase 74 IU/L (14-36); BUN Creatinine Ratio 15.5 (6-22); Bilirubin Total 1.6 mg/dL (0.2-1.3); Blood Urea Nitrogen 9 mg/dL (7-17); Calcium 9.6 mg/dL (8.4-10.2); Carbon Dioxide 27 mmol/L (22-32); Chloride 101 mmol/L (98-107); Estimated Glomerular Filt Rate > 60 mL/min (>60); Globulin 3.2 g/dL (1.7-4.1); Glucose 155 mg/dL (70-100); HEMOLYSIS < 15 (0-50); Sodium 140 mmol/L (137-145); Total Protein 7.7 g/dL (6.3-8.2)
[2023-12-25 20:17] LABS: Troponin I < 0.012 ng/mL (0.01-0.034)
[2023-12-25 20:21] VITALS: BP 113/71; PULSE 101; O2SAT 98
--- NOTE | 2023-12-25 20:24 | PC.NURSE ---
PT denies feeling withdraws at this time. Pt is calm and cooperative with cares.
[2023-12-25 20:30] VITALS: BP 114/75; PULSE 98; RESP 16; O2SAT 97
[2023-12-25 21:00] VITALS: BP 98/58; PULSE 89; RESP 18; O2SAT 96
--- NOTE | 2023-12-25 21:16 | PC.NURSE ---
Pt lying back on gurney. Eyes closed. Assume asleep. VSS
[2023-12-25 21:18] LABS: Reflexed Lactate in 2 Hours Y
--- NOTE | 2023-12-25 21:35 | ED.MEDCLEAR ---
HPI - Medical Clearance General Chief complaint: Medical Clearance Stated complaint: etoh detox, bronchitis Time Seen by Provider: 12/25/23 19:44 Source: patient Mode of arrival: Ambulatory History of Present Illness HPI Narrative: Patient is a 38-year-old female who is here for evaluation of a cough and alcohol abuse/detox. Patient states she was relapsed on alcohol. Her last drink was 0500 hours this afternoon. She drinks multiple drinks a day. Does not think that she was ever had seizures in the past. She states she was having chest pain and shortness of breath. She denies any fevers. Patient was here seeking help with detox/rehab. Related Information Allergies Allergy/AdvReac Type Severity Reaction Status Date / Time No Known Drug Allergies Allergy Verified 12/25/23 19:14 Review of Systems Review of Systems Narrative: See HPI Patient History Social History Smoking Status: Current every day smoker Smoking Status: Current every day smoker tobacco type: vaping alcohol intake frequency: 3 or more drinks per day Substance Use Type: marijuana Exam Initial Vital Signs Initial Vital Signs: Vital Signs Temperature 99.4 F 12/25/23 19:06 Pulse Rate 127 H 12/25/23 19:06 Respiratory Rate 16 12/25/23 19:06 Blood Pressure 125/76 12/25/23 19:06 Pulse Oximetry 96 12/25/23 19:06 Oxygen Delivery Method Room Air 12/25/23 19:06 Const General: cooperative, comfortable and No ill appearing HENMT Head: normal to inspection and normocephalic Resp Effort & Inspection: normal respiratory effort Auscultation: clear to auscultation bilaterally Cardio Rate: tachycardic Rhythm: regular rhythm GI Inspection: normal to inspection Skin General: no rashes or lesions noted [facility] - Medical Clearance Lab Data Attestation: I reviewed the patient's lab results. 12/25/23 19:35 12/25/23 19:35 Labs: Lab Results 12/25/23 Range/Units 19:35 WBC 5.9 (4.5-11.0) X10^3/uL RBC 4.11 (4.0-5.2) X10^6/uL Hgb 13.5 (12.0-16.0) g/dL Hct 39.4 (36-46) % MCV 95.9 (80-100) fL MCH 32.9 (26-34) PG MCHC 34.3 (30-36) % RDW 15.1 H (11.6-14.8) % Plt Count 86 L (150-400) X10^3/uL Neut % (Auto) 65.5 (50-75) % Lymph % (Auto) 28.2 (25-40) % [place] % (Auto) 5.7 (3-14) % Eos % (Auto) 0.1 L (2-4) % Baso % (Auto) 0.5 (0-2) % Neut # (Auto) 3900 (3827-7417) /uL Lymph # (Auto) 1700 (9955-3388) /uL [place] # (Auto) 300 (0-900) /uL Eos # (Auto) 0 (0-450) /uL Baso # (Auto) 0 (0-100) /uL Sodium 140 (137-145) mmol/L Potassium 3.0 L (3.4-5.1) mmol/L Chloride 101 (98-107) mmol/L Carbon Dioxide 27 (22-32) mmol/L BUN 9 (7-17) mg/dL Creatinine 0.58 (0.52-1.04) mg/dL Estimated GFR > 60 (>60) mL/min BUN/Creatinine Ratio 15.5 (6-22) Glucose 155 H (70-100) mg/dL Lactate 3.0 H (0.7-2.1) mmol/L Calcium 9.6 (8.4-10.2) mg/dL Total Bilirubin 1.6 H (0.2-1.3) mg/dL AST 74 H (14-36) IU/L ALT 43 H (<35) IU/L Alkaline Phosphatase 42 (38-126) U/L Troponin I < 0.012 (0.01-0.034) ng/mL Total Protein 7.7 (6.3-8.2) g/dL Albumin 4.5 (3.5-5.0) g/dL Globulin 3.2 (1.7-4.1) g/dL Albumin/Globulin Ratio 1.4 (1.0-2.8) Imaging Data Chest x-ray: Radiologist's Impression: PROCEDURE: XR CHEST 2V INDICATIONS: sob TECHNIQUE: 2 views of the chest were acquired. COMPARISON: None. FINDINGS: Surgical changes and devices: None. Lungs and pleura: Lungs are clear. No pleural effusions or pneumothorax. Mediastinum: Mediastinal contours are normal. Heart size is normal. Bones and chest wall: No suspicious bony abnormalities. Soft tissues appear unremarkable. IMPRESSION: No acute cardiopulmonary abnormalities or focal consolidation. ECG Data Attestation: I personally reviewed and interpreted this ECG as follows: Interpretation: Sinus tachycardia Ventricular rate of [address] T wave changes MDM Narrative Medical decision making narrative: Workup here in the emergency department is unremarkable. Patient was alert and oriented. No SI/HI. Initially was seeking help for alcohol detox however after being here in the emergency department patient states she would like to just be discharged. There is no signs of pneumonia. There was no indication for antibiotics. Patient will discharged home per her request. Discharge Plan Departure Patient Disposition: Home Clinical Impression: Alcohol intoxication Instructions: Alcohol Use Disorder Activity Restrictions/Additional Instructions: No driving for the next 24 hours or in the future if you drink alcohol. Continue to take all of your medications as directed. Contact your primary doctor for a follow-up Referrals: Deepa Skinner FNP-BC [Primary Care Provider] - Stand Alone Forms: Patient Portal/API/Survey
--- NOTE | 2023-12-25 21:50 | PC.NURSE ---
Pt states that she doesn't want detox and that she wants to go home now. Dr Bolanos notified. Pt removed her own IV.
== END 2023-12-25 21:55 | disposition home or self-care (01) ==
PROVIDERS: Emergency Provider Emergency Medicine; PCP Nurse Practitioner Family
DX: F10.229 Alcohol dependence with intoxication, unspecified (principal); R07.9 Chest pain, unspecified; R06.02 Shortness of breath; R00.0 Tachycardia, unspecified; R05.9 Cough, unspecified
CPT/HCPCS: 36415; 71046; 80053; 83605; 84484; 85025; 93005; 93010; 99283; 99284